=== PATIENT | female | born 1990 ===

== ENCOUNTER 2017-07-06 10:42 | Day surgery (SDC) | payer OTHER ==
--- NOTE | 2017-07-01 21:24 | PDGENHP ---
History and Physical History and Physical: Assessment and Plan: 1. Dysmenorrhea Daija's symptoms and exam findings are highly concerning for endometriosis especially in the posterior cul-de-sac and posterior cervix. We reviewed all conservative and surgical options. She has failed medical management. As a result she is requesting surgical intervention. This will be a robotic assisted laparoscopic excision of endometriosis. We briefly reviewed the procedure. I may perform her preoperative counseling over the phone since she lives in [place]. 2. Menorrhagia with regular cycle 3. Dyspareunia, female Subjective: Patient ID: Daija Gómez is a 27 y.o. female who presents to [facility] for the and painful menses. GABRIELLA Choe is a 27-year-old para 1 woman. Her mother is a patient of mine, Marcy Gómez. Daija lives in [place]. She presents with a long-standing history of heavy and painful menses. This has slowly worsened over the last several years. Her menses are fairly regular every month. She will bleed a total of 7 days. 2 of the days are heavy when she will have to change her diva cup every 8 hours. She also will use a pad. She develops cramping about 1 week before her menses which continues throughout her flow. She feels that both in the central pelvis as well as the right lower quadrant. She will have a similar pain with intercourse especially if it is any time near her menses. Additionally she feels pressure and bloating during her menses. If she has a bowel movement during her menses she often will feel pressure and finds it uncomfortable to bear down. She currently has been using a ParaGard for contraception for the last year. Prior to this she had a Mirena IUD for 3 years. With the Mirena her menstrual flow was minimal and her cramping was reduced. However she had almost daily spotting for a year prompting her to remove it. She uses ibuprofen 600 mg for the discomfort which provides no benefit. She has used 2 different control pills to control her symptoms. Unfortunately they caused menstrual migraines and depression. He is single with a current partner. 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 Past Medical History Past Medical History: Diagnosis Date Counseling about travel - Travel outside insurance network Past Surgical History Past Surgical History: Procedure Laterality Date WISDOM TOOTH EXTRACTION WRIST SURGERY CURRENT MEDICATIONS: Current Outpatient Prescriptions Medication Sig multivitamin (HEXAVITAMIN) per tablet Take 1 tablet by mouth daily. No current facility-administered medications for this visit. ALLERGIES: No known drug allergies I have reviewed, verified and agree with the past medical, surgical, , family, social and ROS history as documented by the RN today. Objective: Vital Signs: Visit Vitals BP 102/62 Pulse 68 Temp 36.4 C (97.5 F) Resp 16 Ht 1.651 m (5' 5") Wt 58 kg (127 lb 12.8 oz) LMP 05/17/2017 SpO2 98% BMI 21.27 kg/m Physical Exam Gen: This is an alert, well developed woman in no distress. Neuro: She moves all extremities. Psych: She is appropriate, oriented, with normal affect. Neck: No thyroid enlargement, adenopathy, or tenderness. Lungs: Clear to ascultation, no wheezes or rales. Heart: Regular rate and rhythm without obvious murmurs. Abdomen: Soft, non-tender, without guarding, rebound, or masses. Extremities: No edema or cyanosis. Pelvic: Normal external genitalia. Non-gaping introitus, vagina without discharge, adequately estrogenized, no significant prolapse. Cervix without lesions or discharge. Uterus normal sized, mobility is reduced, and tender especially around the cervix and exquisitely tender along the posterior uterus. Adnexa tender especially on the right, without enlargement. DATA: PELVIC ULTRASOUND Indication: And painful menses. Findings: The uterus is mid position and measures 7.3 x 4.3 x 5.5 cm. A ParaGard IUD is seen at the fundus with the arms in a horizontal position. No uterine abnormalities are seen. There is a suggestion of adhesions between the cervix and rectum. The uterus is exquisitely tender especially posteriorly. The right ovary measures 3.0 x 3.4 cm. The left ovary measures 3.3 x 2.1 cm. The ovaries are tender, especially on the right. There is no evidence of adhesions. Impression: Exquisitely tender cervix posterior uterus and right adnexa. Possible adhesive disease between cervix and rectum. TIME/COMMUNICATION: I personally spent a total of 50 minutes. Of that 35 minutes was counseling/ coordination of patient's care. See my note above for details. Nicko Zabala MD Board Certified Female Pelvic Medicine and Reconstructive Surgery Director of Minimally Invasive Gynecologic Surgery, [facility] Surgeon in Minimally Invasive Gynecologic Surgery [facility] Surgeon in Robotic Surgery
[2017-07-06] MEDS ORDERED: PHENAZOPYRIDINE HCL 200 MG TAB PO ONE (10:53)
[2017-07-06] MEDS ORDERED: GABAPENTIN 400 MG CAP PO ONE (10:53)
[2017-07-06] MEDS ORDERED: ACETAMINOPHEN 500 MG TAB PO ONE (10:53)
[2017-07-06] MEDS ORDERED: ceFAZolin 2 GM/SWFI 2 GM/20 ML SYR IVP ONE (10:53)
[2017-07-06] MEDS ORDERED: LIDOCAINE 1% 2 ML INJ ID PRN (10:54)
[2017-07-06] MEDS ORDERED: LR 1,000 ML IV ONE (10:54)
[2017-07-06 11:15] VITALS: PULSE 70
--- NOTE | 2017-07-06 12:22 | PDHPUP ---
History & Physical Update H&P update statement: This history and physical update is based on an assessment of the patient which was completed after admission or registration (within 24 hours), but prior to the surgery/procedure. H&P update: H&P reviewed & patient examined, no change in patient's condition since H&P completed
[2017-07-06] MEDS ORDERED: MIDAZOLAM 2 MG/2 ML VIAL IVP ONE (12:33)
--- NOTE | 2017-07-06 12:36 | PDANEPAE ---
ANE History of Present Illness H/O ENDOMETRIOSIS ANE Past Medical History - Cardiovascular History Hx Hypertension: No Hx Arrhythmias: No Hx Chest Pain: No Hx Coronary Artery / Peripheral Vascular Disease: No Hx CHF / Valvular Disease: No Hx Palpitations: No - Pulmonary History Hx COPD: No Hx Asthma/Reactive Airway Disease: No Hx Recent Upper Respiratory Infection: No Hx Oxygen in Use at Home: No Hx Sleep Apnea: No Sleep Apnea Screening Result - Last Documented: Negative - Neurologic History Hx Cerebrovascular Accident: No Hx Seizures: No Hx Dementia: No - Endocrine History Hx Diabetes: No Hypothyroid: No Hyperthyroid: No Obesity: no - Renal History Hx Renal Disorders: No Renal History Comment: hx of uti when traveling - Liver History Hx Hepatic Disorders: No - Neurological & Psychiatric Hx Hx Neurological and Psychiatric Disorders: No - Cancer History Hx Cancer: No - Congenital Disorder History Hx Congenital Disorders: No - GI History GERD: no Hx Gastrointestinal Disorders: No - Other Health History Other Health History: wears glasses - Chronic Pain History Chronic Pain: No - Surgical History Prior Surgeries: wisdom teeth removed. cyst removed from right wrist ANE Review of Systems Review of systems is: negative Review of Systems: - Exercise capacity METS (RN): 4 METS ANE Patient History - Allergies Allergies/Adverse Reactions: No Known Allergies Allergy (Verified 06/20/17 12:29) - Home Medications Home medications: home medication list seen and reviewed Home Medications: Multivitamin 06/20/17 [Last Taken 06/29/17] - NPO status NPO Since - Liquids (Date): 07/06/17 NPO Since - Liquids (Time): 08:00 NPO Since - Solids (Date): 07/05/17 NPO Since - Solids (Time): 19:30 - Anes Hx Anes Hx: no prior problems - Smoking Hx Smoking Status: Former smoker - Family Anes Hx Family Hx Anesthesia Complications: none ANE Labs/Vital Signs - Vital Signs Blood Pressure: 105/62 Heart Rate: 70 Respiratory Rate: 16 O2 Sat (%): 100 Height: 165.1 cm Weight: 58.967 kg ANE Physical Exam - Airway Neck exam: FROM Mallampati Score: Class 1 Mouth exam: normal dental/mouth exam - Pulmonary Pulmonary: no respiratory distress - Cardiovascular Cardiovascular: regular rate and rhythym - ASA Status ASA Status: II ANE Anesthesia Plan Anesthesia Plan: general endotracheal anesthesia
[2017-07-06] MEDS ORDERED: DEXAMETHASONE 4 MG/ML VIAL ONE (12:40)
[2017-07-06] MEDS ORDERED: ONDANSETRON 4 MG/2 ML VIAL ONE ×3 (12:40→17:15)
[2017-07-06] MEDS ORDERED: fentaNYL 250 MCG/5 ML INJ ONE (12:40)
[2017-07-06] MEDS ORDERED: PROPOFOL 200 MG/20 ML VIAL ONE (12:40)
[2017-07-06] MEDS ORDERED: ROCURONIUM 50 MG/5 ML VIAL ONE (12:41)
[2017-07-06] MEDS ORDERED: SUGAMMADEX SODIUM 200 MG/2 ML VIAL IVP ONE (12:41)
[2017-07-06] MEDS ORDERED: LIDOCAINE 2% 5 ML SDV ONE (12:41)
[2017-07-06] MEDS ORDERED: SCOPOLAMINE HYDROBROMIDE 1 MG/3 DAYS PATCH TD SCH (12:45)
[2017-07-06] MEDS ORDERED: BUPIVACAINE/EPI 0.5% 30 ML SDV ONE (13:13)
--- NOTE | 2017-07-06 13:26 | POSTANESTH ---
Post Anesthetic Evaluation Cardiovascular Status: Normal, Stable Respiratory Status: Normal, Stable Level of Consciousness/Mental Status: Can Participate in Eval Pain Control: Adequate, Prn Tx Ordered Nausea/Vomiting Control: Adequate, Prn Tx Ordered Complications Possibly Related to Anesthesia: None Noted
[2017-07-06] MEDS ORDERED: METOCLOPRAMIDE 10 MG/2 ML VIAL IVP PRN (13:49)
[2017-07-06] MEDS ORDERED: PROMETHAZINE HCL 25 MG/ML INJ IVP PRN (13:49)
[2017-07-06] MEDS ORDERED: ALBUTEROL 3 ML DEYVIAL IH PRN (13:49)
[2017-07-06] MEDS ORDERED: ACETAMINOPHEN 500 MG TAB PO PRN (13:49)
[2017-07-06] MEDS ORDERED: ONDANSETRON 4 MG/2 ML VIAL IVP PRN (13:49)
[2017-07-06] MEDS ORDERED: LR 500 ML IV PRN (13:49)
[2017-07-06] MEDS ORDERED: HYDROmorphONE/DILAUDID 1 MG/ML INJ IVP PRN (13:49)
[2017-07-06] MEDS ORDERED: NALOXONE HCL 0.4 MG/ML INJ IVP PRN (13:49)
[2017-07-06] MEDS ORDERED: OXYCODONE/APAP 5/325 TAB PO PRN (13:49)
[2017-07-06] MEDS ORDERED: KETOROLAC 30 MG/1 ML SDV ONE (13:58)
--- NOTE | 2017-07-06 14:15 | POSTOPPROG ---
Post Op Note Date of Operation: 07/06/17 Surgeon: Nicko Zabala Bleach Machine Operator: Meghan Higginbotham Anesthesia: GET(General Endotracheal) Pre-op Diagnosis: Endometriosis, dysmenorrhea Post-op Diagnosis: same Procedure: robotic excision of endo, bilat ureterolyis and ovarian pexy Inf/Abcess present in the surg proc area at time of surgery?: No EBL: Minimal Complications: None
[2017-07-06] MEDS ORDERED: fentaNYL 100 MCG/2 ML INJ ONE (14:29)
[2017-07-06] MEDS: fentaNYL 100 MCG/2 ML INJ IVP PRN ×3 (14:31→15:15)
[2017-07-06] MEDS ORDERED: HYDROCODONE/APAP 5/325 TAB ONE ×2 (15:05→15:29)
[2017-07-06] MEDS: HYDROCODONE/APAP 5/325 TAB PO PRN ×2 (15:06→15:30)
[2017-07-06 15:08] VITALS: RESP 13
--- NOTE | 2017-07-06 16:29 | GOP ---
[f rep st] OPERATIVE REPORT DATE OF OPERATION: 07/06/2017 SURGEON: Nicko Zabala MD MACHINE STUFFER: Meghan Higginbotham CFA. ANESTHESIA: General. PREOPERATIVE DIAGNOSIS: 1. Dysmenorrhea. 2. Dyspareunia. 3. Probable endometriosis. 4. Cyclic pelvic pain. POSTOPERATIVE DIAGNOSIS: 1. Dysmenorrhea. 2. Dyspareunia. 3. Probable endometriosis. 4. Cyclic pelvic pain. PROCEDURE PERFORMED: 1. Robotic excision of endometriosis in posterior cul-de-sac and bilateral ovarian fossa. 2. Bilateral ureterolysis. 3. Bilateral ovarian pexy. FINDINGS: SPECIMENS: Pelvic peritoneum with endometriosis. ESTIMATED BLOOD LOSS: Scant. DESCRIPTION OF PROCEDURE: The patient was taken to the operating room. She was identified. General anesthesia was administered and found to be adequate. She was placed in the lithotomy position and prepared and draped in normal sterile fashion. A Hulka tenaculum was placed in the uterus for manipu lation and a Marmolejo catheter was then placed. A 1 cm infraumbilical incision was made with a scalpel. The Veress needle with a CO2 gas flowing was advanced into the peritoneal cavity. The abdomen was then insufflated with carbon dioxide gas. The 12 mm trocar followed by the laparoscope were then inserted. The upper abdomen was unremarkable. T here was no evidence of endometriosis on either diaphragm, liver, stomach, gallbladder or upper abdom inal bowel. Two lateral ports were placed on the right and 1 on the left under direct visualization. She then was placed in Trendelenburg position and the da Shawn robot docked on the left side. The instruments were then brought into the abdominal cavity under direct visualization. The patient had endometriosis in both ovarian fossas as well as the posterior cul-de-sac right under the cervix. She only had 2 small lesion in the left anterior cul-de-sac. She had multiple lesions o n the right ovary and 2 on the left ovary. The uterus had a suggestion of adenomyosis. The posterior cul-de-sac lesion was excised as well as the anterior cul-de-sac. The lesions on the o varies were treated. A bilateral ovarian pexy was then performed by attaching each ovary to their ip silateral round ligaments near the internal inguinal ring, using 3-0 Vicryl Rapide suture. This was due to her cyclic pelvic pain. Attention was then turned to both ovarian fossae. The endometriosis was overlying both ureters. As a result, a bilateral ureterolysis was required. The peritoneum at the pelvic brims was incised. Th e ureters were gently dissected free and lateralized off the overlying peritoneum and endometriosis, from the pelvic brim to where they crossed underneath the uterine arteries. Once this was accomplish ed, the entire ovarian fossa peritoneum was completely excised. All specimens were removed. The pel vis was irrigated with sterile saline, and hemostasis was present. The robot was then undocked. The fascia was closed with 0 Vicryl, skin with 4-0 Monocryl and surgical adhesive. Anesthesia was rever sed and the patient taken the PACU awake, in stable condition. COMPLICATIONS: None. DISPOSITION: Patient stable to PACU. /[id number]/MODL
[2017-07-06] MEDS ORDERED: METOCLOPRAMIDE 10 MG/2 ML VIAL ONE (17:16)
[2017-07-06 17:27] VITALS: TEMP 99
[2017-07-06 17:32] VITALS: BP 100/52; O2SAT 97
[2017-07-07] MEDS ORDERED: PATCH REMOVAL 1 EA PATCH TD ONE (12:33)
== END 2017-07-06 17:44 | disposition home or self-care (01) ==
LOC: FSGY 10:42
PROVIDERS: ATTEND Obstetrics & Gynecology
DX: N80.3 Endometriosis of pelvic peritoneum (principal); N80.1 Endometriosis of ovary; N94.6 Dysmenorrhea, unspecified; N94.10 Unspecified dyspareunia; N92.0 Excessive and frequent menstruation with regular cycle; R10.2 Pelvic and perineal pain; Z97.5 Presence of (intrauterine) contraceptive device
CPT/HCPCS: J0690; J1100; J1885; J2250; J2405; J2704; J2765; J3010